=== PATIENT | female | born 1960 | race Caucasian/White ===

== ENCOUNTER 2018-10-22 10:15 | Emergency (ER) | payer OTHER ==
[2018-10-22] MEDS: KETOROLAC 30 MG INJ IM (10:48)
[2018-10-22 10:50] LABS: URINE BLOOD (Dip) POC 2+ (NEGATIVE); URINE GLUCOSE (Dip) POC Negative (NEGATIVE); URINE KETONES (Dip) POC Trace (NEGATIVE); URINE LEUKOCYTE EST (Dip) POC Negative (NEGATIVE); URINE NITRITE (Dip) POC Negative (NEGATIVE); URINE TOTAL PROTEIN POC 1+ (NEGATIVE)
== END 2018-10-22 11:00 | disposition home or self-care (01) ==
LOC: FTE 10:15
DX: S76.012A Strain of muscle, fascia and tendon of left hip, initial encounter (principal); I10 Essential (primary) hypertension; X50.1XXA Overexertion from prolonged static or awkward postures, initial encounter; Y92.39 Other specified sports and athletic area as the place of occurrence of the external cause
CPT/HCPCS: 81003; 96372; 99284-25